=== PATIENT | female | born 1975 | race Caucasian/White ===

== ENCOUNTER → 2022-10-17 | Outpatient (CLI) | payer SELFPAY, OTHER ==
--- NOTE | 2022-10-17 12:44 | US_ITS ---
EXAM: US PELVIS TRANSABDOMINAL AND TRANSVAGINAL, COMPLETE CLINICAL INDICATION: pelvic pain TECHNIQUE: Transabdominal and transvaginal pelvic ultrasound was performed with grayscale and color Doppler imaging. Transvaginal imaging was used for better evaluation of the endometrium and adnexa. This report was created using [email or web address] report [employer] technology. COMPARISON: None. FINDINGS: UTERUS/CERVIX: Uterus is normal in size and echogenicity measuring 10.5 x 6.6 x 6.9 cm. Endometrial thickness is normal measuring 8 mm. Mild fluid in the endometrial canal. 4.9 x 5.4 cm hypoechoic exophytic lesion arising from the uterus on the right consistent with fibroid. 6 x 6 x 5 mm hyperechoic lesion arising from the endometrium. RIGHT OVARY: Right ovary is normal in size and echogenicity measuring 2.8 x 2 x 2.2 cm. No dominant mass or cyst. Blood flow is present in the right ovary. LEFT OVARY: Left ovary is normal in size and echogenicity measuring 2.3 x 1.3 x 1.4 cm. No dominant mass or cyst. Blood flow is present in the left ovary. FREE FLUID: None. BLADDER: Bladder is well-distended and unremarkable. US/Pelvic w/ Transvaginal IMPRESSION: 1. Hyperechoic lesion in the endometrium, possible polyp. MEDICAL EQUIPMENT REPAIR TECHNICIAN evaluation is recommended. 2. Subserosal uterine fibroid. Electronically Signed: Kathy Plascencia MD at 17:36 EDT Reading Location ID and State: [id number] / Tel , Service support ,
== END | disposition home or self-care (01) ==
LOC: US 12:42
PROVIDERS: PCP Nurse Practitioner Family; Referring Provider Obstetrics & Gynecology; Visit Provider Obstetrics & Gynecology
DX: N94.89 Other specified conditions associated with female genital organs and menstrual cycle (principal); D25.2 Subserosal leiomyoma of uterus
CPT/HCPCS: 76830; 76856

== ENCOUNTER → 2022-12-26 | Outpatient (CLI) | payer OTHER, SELFPAY ==
--- NOTE | 2022-12-26 | EMB_PTH ---
PATIENT: [facility]MIHT [facility][id number] AGE/SX: 47/F ROOM: RE12/26/[address]: Dr. Tiny Tse MD : 1975 BED: DIS: 12/26/2022 SPEC #: [id number] RECD: 12/26/22 16:38 STATUS: NAHUM CECILIA #: [id number] MARYCARMEN: 12/26/22 00:[address]: Tiny Tse DEPT: SURGICAL PATHOLOGY RECD BY: Mallory Gandara ENTERED: 12/29/22 08:45 SP TYPE: ENDOM BX/C FINA DR: Catherine Gallo, SPEECH THERAPIST-C Tissues: Endometrium, NOS Procedures: Surgery Specimen Level IV HEADER OPERATION: Endometrial biopsy PRE-OP DIAGNOSIS: Abnormal uterine bleeding TISSUE SUBMITTED: Endometrial lining MICROSCOPIC DIAGNOSIS Endometrium, biopsy: Secretory endometrium. AM:amberly 12/30/2022 MICROSCOPIC DESCRIPTION Slides are reviewed. GROSS DESCRIPTION Received is one container labeled with the patient's name and not further designated. The specimen consists of multiple irregular fragments of pink soft tissue that in aggregate measure 2.5 x 1.5 x 0.2 cm. The specimen is totally submitted in one cassette. / SJ:amberly 12/29/2022 TC:5 CPT: 52851
== END | disposition home or self-care (01) ==
LOC: LABSPEC 16:48
PROVIDERS: PCP Nurse Practitioner Family; Referring Provider Obstetrics & Gynecology; Visit Provider Obstetrics & Gynecology
DX: N93.9 Abnormal uterine and vaginal bleeding, unspecified (principal)
CPT/HCPCS: 88305

== ENCOUNTER 2023-01-13 14:11 | Inpatient (IN) | payer SELFPAY, OTHER ==
--- NOTE | 2023-01-06 08:40 | EKG12_ITS ---
Test Reason : PREOP Blood Pressure : / mmHG Vent. Rate : 053 BPM Atrial Rate : 053 BPM P-R Int : 130 ms QRS Dur : 084 ms QT Int : 426 ms P-R-T Axes : 071 073 046 degrees QTc Int : 399 ms Sinus bradycardia Low voltage QRS Borderline ECG Confirmed by GABRIELLA HEATON, ROGERIO ([id number]), acquisitions editor RIHCA BEAULIEU ([id number]) on 01/07/2023 11:16:41 AM Referred By: Tiny Tse Confirmed By:ROGERIO QUIROZ MD
[2023-01-06 09:19] LABS: Absolute Lymphocyte Count 1.67 X10^3/uL (0.83-4.51); Absolute Neutrophil Count 2.3 X10^3/uL (2.0-7.7); Basophil# 0.03 X10^3/uL; Basophil% 0.7 % (0-1); Eosinophil# 0.09 X10^3/uL; Hemoglobin 11.2 g/dL (12.0-15.0); Lymphocyte # 1.67 X10^3/ul (0.83-4.51); Lymphocyte % 36.9 % (19-41); Mean Corp Hgb Conc 31.1 g/dL (32-36); Mean Corpuscular Hgb 26.7 pg (27.0-32.0); Mean Corpuscular Volume 85.7 fL (81-99); Mean Platelet Vol. 8.9 fl (6.2-12.0); Monocyte# 0.41 X10^3/uL; Monocyte% 9.1 % (0-10); NRBC Flagged by Analyzer 0 % (0-5); Neutrophil # 2.31 X10^3/uL (2.7-7.7); Neutrophil % 51.1 % (47-70); Platelet Count 231 K/mm3 (150-450); RBC Distribution Width CV 13.7 % (11.6-14.6); RBC Distribution Width SD 43.2 fl (35.1-43.9); White Blood Count 4.5 K/mm3 (4.4-11.0)
[2023-01-06 09:48] LABS: ALB/GLOB Ratio 1.2 RATIO (0.9-2.4); AST(SGOT) 13 U/L (15-37); Alanine Aminotransfer ALT/SGPT 15 U/L (13-56); Albumin, Serum 3.9 g/dL (3.2-5.0); Alkaline Phosphatase 58 U/L (45-117); Anion Gap 3 (5-15); BUN 14 mg/dL (7-18); BUN/Creat Ratio 22.8 RATIO (10-20); Calcium,Total 9.2 mg/dL (8.5-10.1); Chloride 109 mmol/L (98-107); Creatinine, Serum 0.62 mg/dL (0.55-1.02); EST Glomerular Filtration Rate 110 mL/min (>60); Est Glom Filt Rate - Afr Amer 133 mL/min (>60); Globulin 3.3 g/dL (2.2-4.2); Glucose 84 mg/dL (74-106); Potassium 4.2 mmol/L (3.5-5.1); Protein, Total 7.2 g/dL (6.4-8.2); Sodium Level 141 mmol/L (136-145)
[2023-01-06 09:55] LABS: Magnesium 2.1 mg/dL (1.6-2.6)
--- NOTE | 2023-01-12 17:30 | HP.PCM_ITS ---
History and Physical MR#: [id number] Acct: [id number] Name:? OFE SMITH Rep #: [id number] : 1975 ? ? Provider: Dr. Tiny Tse MD Age/Sex:? 47/F ? ? [place] [facility] [place]: Signed Intake Vital Signs ? 12/27/2307:13 12/27/2307:19 Height 5 ft 3 in 5 ft 3 in Weight: ? 142 lb 8 oz BMI ? 25.2 BP ? 100/61 Position ? Sitting Intake Visit Reasons:?EMB/preop Director New Product Required: No Accompanied by: Significant Other Allergies No Known Allergies Allergy (Unverified 12/26/22 08:20) Is last menstrual period known: Yes Post menopausal: No Patient : No : No Current gender identity: female PFSH PFSH Medical History? Hypotension Uterine fibroid Surgical History? delivery delivered Hiatal hernia History of oral surgery Family History? Father?? ,? 79 Cancer of kidney Bladder cancer Social History? Smoking Status:? Never smoker alcohol intake:? never substance use type:? does not use what type of physical activity do you participate in:? none seatbelt use:? always do you feel safe at home:? Yes additional [facility] history:[facility] A[facility] Carlos/Svetlana History ? ? ? 7 ? Elective abortions ? Hx Para ? Spontaneous abortions ? ? ? 1 Hx # Term Pregnancies ? Ectopic pregnancies ? Hx # Pregnancies ? Multiple births ? # of living children ? ? ? 6 Past Pregnancies Del. Date Name GA/Weeks Outcome Route Bth Weight Infant Gen Labor Lgth Anesthesia Del Locatn Provider FOB Unknown 1993 Li ? live - full term ? Unknown 1995 Ana ? live - full term C-s ection ? Unknown 1998 Claudette ? live - full term C-s ection ? Unknown 2000 Nel ? live - full term C-se ction ? Unknown 2002 Shadia ? live - full term C-s ection ? Unknown 2006 Maryanne ? live - full term C-s ection ? HPI EMB/preop Details: OFE SMITH is a 47 year old who presents for surgical preop she has persistent pelvic pain and pressure, history of pelvic congestion suspected on ultrasound and a 5 cm fibroid.? 5 previous cesareans.? she is orthodox and self pay.? she denies any heavy menses but has cramping. ROS Const Constitutional: Denies fatigue, fever(s), headache(s), increased appetite, poor appetite, weight gain or weight loss ENT ENT: Reports system reviewed and no additional complaints, except as documented Cardio Card: Denies chest pain Resp Resp: Denies cough or dyspnea GI GI: Reports as per HPI; Denies constipation, nausea or vomiting : Reports as per HPI; Denies difficulty voiding, dysuria, nipple discharge, urinary frequency, urinary incontinence, urinary hesitancy, urinary urgency, vaginal discharge, vaginal dryness, vaginal odor or vaginal pruritus Musc Musc: Denies arthralgias, back pain or muscle weakness Skin Skin/Breast: Denies alopecia, change in hair, dry skin, breast mass, breast pain, breast skin changes or nipple discharge Neuro Neuro: Reports system reviewed and no additional complaints, except as documented Psych Psych: Reports system reviewed and no additional complaints, except as documented Endo Endo: Denies cold intolerance, excessive sweating, heat intolerance or polydipsia Jaren/Lymph Hematologic/Lymphatic: Denies easy bleeding, Denies easy bruising and Denies lymphadenopathy Exam Const General: cooperative, healthy appearing, comfortable, no acute distress and well developed Nutritional Appearance: average body habitus Orientation: alert [facility] Head: normal to inspection and normocephalic Ears: hearing grossly normal bilaterally and external ears normal Nose: external nose normal and nares normal Face and sinus: normal facial exam Neck Neck: normal visual inspection and no lymphadenopathy Thyroid: thyroid normal Chest Chest palpation & inspection: normal inspection of the chest Resp Effort & Inspection: normal respiratory effort Auscultation: clear to auscultation bilaterally Cardio Rate: regular rate Rhythm: regular rhythm Heart Sounds: S1 normal and S2 normal GI Inspection: normal to inspection and non-distended Palpation: soft and no hepatosplenomegaly General: bladder normal to palpation External Female Exam: normal external appearance and normal appearance of the urethra Urethra: normal appearance of the urethra and normal palpation Speculum Exam - Vagina: normal appearance of the vagina and vaginal bleeding Speculum Exam - Cervix: normal appearance of the cervix and nontender Bimanual Exam- Vagina & Uterus: normal bimanual exam, uterine size normal, bladder normal to palpation, uterine shape abnormal, No tender, uterine mobility normal, consistency normal, normal palpation, non-tender, enlarged (10 week) and nodular (posterior fibroid retroverted uterus) Bimanual Exam- Adnexa, other: normal adnexae, adnexae mobile, no masses and normal Pelvic Support: normal OB/External & Speculum: vaginal bleeding Speculum Exam: vaginal bleeding Musc Other: gross motor intact no deficits, full bilateral strength Skin General: no rashes or lesions noted Neuro General: patient alert, patient awake, moves all extremities and no focal motor deficits Motor: muscle tone normal throughout Extrem General: normal to inspection and no pedal edema Psych Appearance: grossly normal Mental Status: mental status grossly normal Affect: normal affect Speech and Movement: speech and movement normal Office Procedures Endometrial Biopsy Endometrial Biopsy Test: Yes Negative Consent Signed: Yes Time out checklist: patient, procedure, site marked/identified, positioning of patient, supplies available, allergies confirmed and team agrees on procedure Time out time: 09:30 tenaculum used: Yes dilator used: Yes Details: Cervix prepped with betadine and pipelle inserted into uterus without complication. Specimen obtained and sent to lab for analysis. All instruments removed from vagina without complications. Excellent hemostasis noted. Coding Level of Care Code No Charge Diagnoses Pelvic congestion syndrome? N94.89 Uterine fibroid? D25.9 CPT Codes Endometrial Biopsy (67546) Assessment and Plan Assessment and Plan (1) Pelvic congestion syndrome: ?Status:?Acute ?Comment: discussed OCP, ellagolix, or hysterectomy, proceed with LAVHBS (2) Uterine fibroid: ?Status:?Acute ?Comment: 5cm.? 5 previous cesareans. see other A/P info. ? ? ? Orders: Orders Endometrial Biopsy Today ? ? Comprehensive Metabolic Profil Today D25.9 - Leiomyoma of uterus, unspecified, N94.89 - Other specified conditions associated with female genital organs and menstrual cycle ? 12 Lead EKG Today D25.9 - Leiomyoma of u terus, unspecified, N94.89 - Other specified conditions associated with female genital organs and menstrual cycle ? CBC W/Diff, Automated Today D25.9 - Leiomyoma of uterus, unspecified, N94.89 - Other specified conditions associated with female genital organs and menstrual cycle ? Type & Screen - PAT ONLY Today D25.9 - Leiomyoma of uterus, unspecified, N94.89 - Other specified conditions associated with female genital organs and menstrual cycle ? Plan After discussing the patient's diagnosis and treatment plan options, patient wishes to proceed with surgical management.? I have discussed with the patient the risks, benefits, and alternatives of the procedure which include but are not limited to risks of anesthesia, bleeding, infection, possible damage to bowel, bladder, or surrounding vasculature which could lead to additional surgery to evaluate any complications.? Patient agrees to procedure and wishes to proceed.? ACOG/uptodate references given for additional information regarding procedure.?
[2023-01-13] VITALS (16 sets, daily range): BP systolic 96–112; BP diastolic 52–67; PULSE 59–79; RESP 14–36; TEMP 36.4–37.1; O2SAT 14–100; BMI 25.2
--- NOTE | 2023-01-13 | HYST_PTH ---
PATIENT: OFE SMITH LOC: [facility] U#:[id number] AGE/SX: 47/F [place]OM: [facility] [place] RE01/13/[address]: Dr. Tiny Tse MD : 1975 BED: 1 DIS: 01/14/2023 SPEC #: [id number] RECD: 01/13/23 13:21 STATUS: NAHUM BROOKS #: [id number] MARYCARMEN: 01/13/23 00:[address]: Tiny Tse DEPT: SURGICAL PATHOLOGY RECD BY: Gino Nayak ENTERED: 01/13/23 13:21 SP TYPE: HYSTERECT OTHR DR: Catherine Gallo, SENIOR DESIGNER/ART DIRECTOR-C Tissues: Uterus, NOS Procedures: Surgery Specimen Level V HEADER OPERATION: LAVH converted to total abdominal hysterectomy, bilateral salpingectomy PRE-OP DIAGNOSIS: Pelvic congestion syndrome, uterine fibroid TISSUE SUBMITTED: Cervix, uterus, bilateral fallopian tubes MICROSCOPIC DIAGNOSIS Uterus, hysterectomy: Cervix ? nabothian cysts and mild chronic inflammation. Endometrium ? proliferative endometrium. Myometrium ? leiomyoma and focal adenomyosis. Right fallopian tube - no pathologic change. Left fallopian tube ? benign paratubal cyst. AM:amberly 01/14/2023 MICROSCOPIC DESCRIPTION Slides are reviewed. GROSS DESCRIPTION Received in fixative is one container labeled with the patient's name and designated uterus. The specimen consists of a uterus with attached cervix and attached right and left fallopian tubes. The uterus with cervix measures 12.0 x 11.0 x 5.0 cm and weighs 303 gm. The ectocervix is grossly unremarkable. The endocervical canal measures 4.2 cm in length and is grossly unremarkable. The triangular endometrial cavity measures 5.2 x 5.0 cm. The velvety, reddish-fitch endometrium measures up to 0.2 cm in thickness. The myometrium measures 2.8 cm in average thickness and contains a firm, rubbery pink-fitch nodule measuring 6.0 cm in diameter. The cut surface of the nodule displays a whorled appearance without areas of cyst formation, necrosis or hemorrhage. The right and left fallopian tubes are similar in appearance with average lengths of 4.5 cm and average diameters of 0.8 cm. Smutter sections are submitted in ten cassettes as follows: 1 - anterior cervix, 2 - posterior cervix, 3 & 4 - anterior uterine wall, 5 & 6 - posterior uterine wall, 7 & 8 - myometrial mass, 9 - right fallopian tube, 10 - left fallopian tube. / STEVE:amberly 01/13/2023 TC:1 CPT: 02781
[2023-01-13] MEDS: Lactated Ringers 1,000 ML 40 ML IV ×3 (09:05→12:35)
[2023-01-13] MEDS: Magnesium 1 GM over 15 mins IV (09:08)
[2023-01-13] MEDS: Scopolamine 1mg/72hr Patch 1 PATCH TD (09:10)
[2023-01-13] MEDS: Celecoxib 200 MG Capsule 400 MG PO (09:11)
[2023-01-13] MEDS: Phenazopyridine 95 MG Tablet 190 MG PO (09:11)
[2023-01-13] MEDS: Gabapentin 600 MG Tablet PO (09:12)
[2023-01-13] MEDS: Acetaminophen 500 MG Tablet 1000 MG PO ×3 (09:12→23:37)
[2023-01-13] MEDS: Enoxaparin 40 MG/0.4 ML Syringe SC (09:12)
[2023-01-13 09:13] LABS: Internal QC Validated? YES +Cl - CLEAR BKGD; Pregnancy, Urine Negative Negative
[2023-01-13] MEDS: dexAMETHasone 4 MG/ML Vial 8 MG IV (09:15)
[2023-01-13 09:36] LABS: Bedside Glucose 135 mg/dL (74-106)
--- NOTE | 2023-01-13 09:45 | OP.PCM_ITS ---
Problems Associated Problem List Diagnoses (1) Pelvic congestion syndrome: (2) Uterine fibroid: Report of Operation Date of Procedure: 01/13/23 Pre-Operative Diagnosis: AUB Post-Operative Diagnosis: same Surgery/Procedure Performed:: LAVHBS converted to NORA due to cystotomy Description of Surgical Findings:: 5 previous sections and enlarged fibroid uterus right 5.5 cm anterior w ith 315g uterus, extensive anterior scarring of vesicouterine space Surgeon: Tiny Tse casino cage manager: Coretta Hyman Type of Anesthesia: General Specimen's removed: uterus, tubes Drains: clarke Fluids Replaced: crystalloid Description of Procedure: Patient received preoperative antibiotics and SCDs were on preoperatively. Patient was taken back to the operating room and placed in the dorsal lithotomy position. General anesthesia was induced and patient was prepped and draped in normal sterile fashion. Uterine manipulator was placed inside the uterus and Clarke catheter placed in the bladder. The umbilicus was grasped with towel clamps and an intraumbilical incision was made after injecting with quarter percent Marcaine and a Veress needle entered into the abdomen confirmed to be intra-abdominal with a low opening pressure. Abdomen was insufflated with CO2 gas and the Veress needle removed and the 5 mm trocar was placed under direct visualization without complication. Right and left lower quadrants were transilluminated and injected with quarter percent Marcaine and 5 mm ports placed under direct visualization. Pelvis was well visualized see operative findings for additional information. Bilateral fallopian tubes were identified and transected with the LigaSure device across the mesosalpinx to the level of the utero-ovarian ligament which was also transected with the LigaSure device. The broad ligament was opened up by transecting the round ligament bilaterally and skeletonizing the uterine vessels bilaterally and creating a bladder flap using the LigaSure device. this required extensive careful dissection both with blunt, sharp, and hydrodissection. The tissue planes were very dense and difficult to fully ascertain but after the full dissection was complete and the bladder inspected there was a 1 cm incidental cystotomy noted and therefore urology called for repair. Urology requested an open incision and therefore laparotomy was performed with pfannensteil skin incision to the layer of the fascia which was nicked in the midline and the incision extended laterally. Very poor tissue quality was encountered likely due to malnutrition and multiple previous pregnancies. Abdominal wall and rectus muscles were extremely thin. Abdominal retractor was placed after the abdominal cavity was entered and bowel packed away. Please see Dr. Francisco's note for repair. The uterus and fibroid were then grasped and with the dissection of the fibroid was performed around the right pelvic sidewall. Additional scar tissue was taken down along the lower part of the cervix and uterus. Bilateral uterosacral ligaments were clamped cut and suture-ligated with 0 Monocryl. Then the vaginal cuff was clamped cut and the uterus was amputated off of the vaginal stump and sent to pathology for analysis. Vaginal cuff was sutured with [id number] 0 Vicryl pop-off's. An additional stitch obtain hemostasis in the left angle of the vaginal cuff. A raw appearance over the vesicouterine scar tissue dissection area was noted and therefore Lola was placed over this area and then excellent hemostasis was noted. This was after copious irrigation was performed. All sponges and laps were removed from the abdomen and peritoneum closed with 3-0 Monocryl fascia closed with 1 strata fix PDS with an additional peritoneal suture along the right side due to part of the stitch being cut during fascial closure. Subcutaneous tissue was copiously irrigated and the skin was closed with 4-0 Monocryl. Port sites on the abdomen were closed with 4-0 Monocryl interrupted sutures and dermabond was applied. She was awoken and taken recovery in stable condition. Grafts/Implants Used: none Complications none Admit VTE Documentation VTE Present on Admission: No VTE Mechan Device Prophylaxis: SCD's VTE Pharm Prophylaxis ordered?: Yes Procedures Urinary/Genital 52xxx-59xxx: 79720 LAVH+BS/O <250gr Uterus
--- NOTE | 2023-01-13 09:46 | DCINST_ITS ---
Discharge Instructions Diet Discharge Diet: No restrictions Activity May resume sexual activity in: 6 weeks Weight Bearing Status: Full weight bearing Dressing / Incision Call your doctor if your incision/area has: Continuous Slow Oozing, Sudden Increased Bleeding, Increased Pain/ Swelling, Increased Redness and Foul Smelling Discharge Call your doctor if you observe: Fever of 101 or Higher, Using more than 1 pad per hour, Shortness of breath, Chest pain and Uncontrolled pain Suture Line Care: Avoid Pulling/Pushing and Avoid Pinching/Bending Remove Dressing in: 1 week (if present) Cleanse incision/area with: Soap & Water and Keep Dressing Clean & Dry Follow Up Care Please Follow Up With: Tiny Tse MD When: Call to make an appointment with your doctor for a postop visit in 2 and 6 weeks. Test Results: Test results from this visit will be discussed in further detail at your follow- up appointment, if applicable. Discharge Plan Admission Attending Provider: Tiny Tse Primary Care Provider: Catherine Gallo Discharge Orders/Prescriptions Prescriptions: New oxycodone-acetaminophen [Percocet] 5-325 mg tablet 1 tab PO Q6H PRN (Reason: pain) 7 Days Qty: 20 0RF naproxen [naproxen] 500 mg tablet 500 mg PO BID PRN PRN (Reason: Pain) Qty: 30 1RF Referrals / Follow Up: Catherine Gallo, THERESA-C [Primary Care Provider] - Disposition Disposition (needs filled in before D/C Order can be placed): Home, Self Care
[2023-01-13] MEDS: Cefazolin 2 GM in 0.9% Normal Saline 100 ML IV (09:53)
[2023-01-13] MEDS: Bupivacaine 0.25% 30 ML Vial (10:30)
--- NOTE | 2023-01-13 11:55 | OP.PCM_ITS ---
Report of Operation Date of Procedure: 01/13/23 Pre-Operative Diagnosis: Uterine fibroid, pelvic congestion syndrome Post-Operative Diagnosis: Same, and cystotomy Surgery/Procedure Performed:: Closure cystotomy, cystoscopy with right ureteral catheterization Description of Surgical Findings:: 1 cm cystotomy at the dome not involving either ureter. Surgeon: Marilee Francisco Type of Anesthesia: General Description of Procedure: The patient is a 47-year-old female undergoing a laparoscopic assisted hysterectomy with a history of 5 previous section deliveries. An inadvertent cystotomy at the dome of the bladder was encountered approximately 1 cm in size and I was called in for evaluation and management. At the time I arrived, Dr. Tse had opened the abdomen and had the injury dissected nicely. The entire length of the cystotomy was easily visualized and isolated. It was closed in 3 layers, first with 3-0 chromic in the bladder mucosa, followed by 3-0 Vicryl in the detrusor layer, and then 2-0 Vicryl for an imbrication layer. At completion of the closure, the Hong catheter was removed and a cystoscope was inserted into the bladder confirming no further evidence of injury to the remainder of the bladder. The closure was watertight. The left ureteral orifice ureteral jet was clearly seen with Pyridium. On the right side, the ureteral orifice was intubated with a 5 Micronesian whistle-tip catheter which easily advanced to 20 cm and was left in place for completion of the hysterectomy. At this time the cystoscope was removed and the Hong catheter was reinserted. 10 cc of sterile water was placed into the Hong balloon. The case was then turned back over to Dr. Tse. There were no complications during this portion of the procedure. Grafts/Implants Used: None Complications None Admit VTE Documentation VTE Present on Admission: Yes VTE Mechan Device Prophylaxis: SCD's
[2023-01-13] MEDS: Ondansetron 4 MG/2 ML Vial IV (12:38)
[2023-01-13] MEDS: Ketorolac 30 MG/ML Syringe IV ×2 (17:12→23:37)
[2023-01-13] MEDS: Lactated Ringers 1,000 ML 999 ML IV (18:29)
[2023-01-13] MEDS: oxyCODONE 5 MG Tablet PO (20:06)
[2023-01-13] MEDS: Docusate Sodium 100 MG Capsule PO (22:24)
[2023-01-14 04:01] VITALS: BP 96/58; PULSE 61; RESP 16; TEMP 36.8; O2SAT 98
--- NOTE | 2023-01-14 05:56 | PCM.PN.OB ---
Subjective Subjective Patient doing well without complaints. Tolerating PO. Ambulating without difficulty. Denies chest pain, shortness of breath, calf pain/swelling, fevers, chills, lightheadedness. Objective Data Objective Data Vital Signs: Vital Signs Temp Pulse Resp BP Pulse Ox O2 Del Method O2 Flow Rate 98.2 F 61 16 96/58 L 98 Room Air 2 01/14/23 04:01 01/14/23 04:01 01/14/23 04:01 01/14/23 04:01 01/14/23 04:01 01/14/23 04:01 01/13/23 15:52 Oxygen Flow Rate (L/min) 2 Oxygen Delivery Method Room Air Weight: 142 lb 6.4 oz Body Mass Index (BMI) 25.2 Intake & Output: Intake and Output for Last 24 Hours 01/12/23 01/13/23 01/14/23 23:59 23:59 23:59 Intake Total 4050.67 / 4050.67 Output Total 2725 / 2725 Balance 1325.67 / 1325.67 Lab / Micro Data Result Diagrams: 01/06/23 08:59 01/06/23 08:59 Labs: Laboratory Results - last 24 hr 01/13/23 08:55: Urine Test Negative 01/13/23 09:03: POC Glucose 135 H ROS Constitutional Constitutional: Reports systems reviewed and no addt'l complaints, except as documented Cardiovascular Cardiovascular: Reports systems reviewed and no addt'l complaints, except as documented Respiratory/Chest Respiratory/Chest: Reports systems reviewed and no addt'l complaints, except as documented Gastrointestinal Gastrointestinal: Reports systems reviewed and no addt'l complaints, except as documented Physical Exam Const alert, oriented x3 and no apparent distress HEENT Head and Scalp: atraumatic Resp normal respiratory effort GI soft to palpation and non-tender Assessment & Plan (1) Pelvic congestion syndrome: COMMENT: s/p LAVHBS converted to NORA due to cystotomy. repaired by Maryam. (2) Uterine fibroid: COMMENT: 5cm. 5 previous cesareans. PLAN: Plan patient is s/p NORA POD 1 1. routine ERAS protocol postop care- increase ambulation, encourage oral intake and oral control of pain. lovenox and scds for dvt prophylaxis, patient stable for discharge to home.
[2023-01-14] MEDS: Acetaminophen 500 MG Tablet 1000 MG PO (06:16)
[2023-01-14] MEDS: Ketorolac 30 MG/ML Syringe IV (06:17)
[2023-01-14 06:42] LABS: Hematocrit 31.3 % (37-47); Mean Corp Hgb Conc 31.9 g/dL (32-36); Mean Corpuscular Hgb 26.6 pg (27.0-32.0); Mean Corpuscular Volume 83.2 fL (81-99); Mean Platelet Vol. 8.7 fl (6.2-12.0); Platelet Count 180 K/mm3 (150-450); RBC Distribution Width CV 13.8 % (11.6-14.6); RBC Distribution Width SD 41.5 fl (35.1-43.9); Red Blood Count 3.76 M/mm3 (4.2-5.4)
[2023-01-14] MEDS: Bisacodyl 5 MG Tablet 10 MG PO (06:46)
[2023-01-14 08:00] VITALS: BP 107/60; PULSE 61; RESP 16; TEMP 37; O2SAT 99
[2023-01-14] MEDS: Docusate Sodium 100 MG Capsule PO (08:12)
[2023-01-14] MEDS: Ensure Plus High Protein 120 ML LIQUID PO (08:12)
[2023-01-14] MEDS: Enoxaparin 40 MG/0.4 ML Syringe SC (08:12)
--- NOTE | 2023-01-14 09:12 | NURSING ---
pt not yet passing gas, this RN walked pt in hallway
--- NOTE | 2023-01-14 09:20 | CASEMGMT ---
FERNANDO HORVATH Assessment: Face to Face with pt for initial transition planning/care coordination assessment. RN ALEXANDRU introduced self and role at [facility], pt voices understanding and consents to assessment. Pt is A/O x4 and answers all questions appropriately at this time. Pt lying in bed with at bedside. Pt agreeable to assessment with present. Care providers, pharmacy, and demographics verified/updated. Admitting Dx: GABRIELLE, BS converted to [facility] PCP:Sabino Specialists:Carmencita FAMILY LAW ATTORNEY Preferred Pharmacy: [facility] Retail Insurance: [facility] Package Plan, [employer] Prescription Benefit: no LNOK: Remi Velez, Living Arrangements: Pt lives with and two children in a two story home with 3-4 steps to enter without a rail. Pt reports she is I in ADL's and denies concerns at home. Transportation: Pt hires drivers for transportation and has a local truck driver to take her home from the hospital. DME/HHC/SNF: Pt denies having any DME in the home, previous HHC or SNF stays. Pt states no concerns with going home at time of dc. Pt states no further concerns/needs. CM to follow. Advised pt to ask CM if any further question/concerns/needs arise, voices understanding. Pt Goal: Home Plan: Home
--- NOTE | 2023-01-14 10:37 | PHA.DC.MC ---
Pharmacy Service has performed discharge medication reconciliation and counseling for this patient. 1. OXYCODONE/ACETAMINOPHEN 5/325 1T PO Q6H PRN PAIN 2. NAPROXEN 500MG PO BID PRN PAIN The patient's discharge medication list was reviewed for discrepancies and discrepancies were resolved. Home Medications naproxen 500 mg tablet 500 mg PO BID PRN PRN Pain #30 tabs 01/13/23 oxycodone-acetaminophen 5 mg-325 mg tablet (Percocet) 1 tab PO Q6H PRN pain 7 days #20 tabs 01/13/23 The patient was counseled on the following discharge medications and changes in medications for homegoing were reviewed. The Reason for Use, instructions for use, and potential side effects were reviewed for all new medications. The patient's questions regarding all of their medications were answered. The patient was able to verbally demonstrate an understanding of their discharge medications. Patient was counseled by registered pharmacy technicianChandan.
== END 2023-01-14 10:37 | disposition home or self-care (01) | DRG 742 ==
LOC: SDC 14:24 → MS3 14:24
PROVIDERS: Anesthesiology; Admitting Provider Obstetrics & Gynecology; PCP Nurse Practitioner Family; Referring Provider Obstetrics & Gynecology; Visit Provider Obstetrics & Gynecology
PROC: 0UT9FZZ Resection of Uterus, Via Natural or Artificial Opening With Percutaneous Endoscopic Assistance (ICD-10-PCS; principal; 2023-01-13 11:15)
DX: N94.89 Other specified conditions associated with female genital organs and menstrual cycle (principal); N99.71 Accidental puncture and laceration of a genitourinary system organ or structure during a genitourinary system procedure; E44.0 Moderate protein-calorie malnutrition; N80.03 Adenomyosis of the uterus; N88.8 Other specified noninflammatory disorders of cervix uteri; N83.8 Other noninflammatory disorders of ovary, fallopian tube and broad ligament; N93.9 Abnormal uterine and vaginal bleeding, unspecified; D25.9 Leiomyoma of uterus, unspecified; Z68.25 Body mass index [BMI] 25.0-25.9, adult; Z53.31 Laparoscopic surgical procedure converted to open procedure
CPT/HCPCS: 36415; 80053; 81025; 82962; 83735; 85025; 85027; 86850; 86900; 86901; 88307; 93005; J7120; C1758; J2405; J3475

== ENCOUNTER → 2023-01-20 | Outpatient (CLI) | payer OTHER, SELFPAY ==
--- NOTE | 2023-01-20 10:24 | RAD_ITS ---
CLINICAL HISTORY: Female, 47 years old. Assessment of the urinary bladder following bladder injury. PROCEDURE: Cystogram. FLUOROSCOPY TIME (if supplied): (30 seconds) minutes/seconds. 4 images. 9.2 mGy 2050 mL of contrast installed into the bladder in a retrograde fashion through an indwelling Hong catheter. The radiologist installed the contrast into the bladder. Findings: The bladder was opacified. No evidence of bladder leak. RAD/Cystography min 3 Views IMPRESSION: No evidence of bladder leak. Electronically Signed: Trent Duvall MD at 12:11 EDT ,
== END | disposition home or self-care (01) ==
LOC: RAD 10:16
PROVIDERS: PCP Nurse Practitioner Family; Referring Provider Urology; Visit Provider Urology
DX: D25.9 Leiomyoma of uterus, unspecified (principal); N94.89 Other specified conditions associated with female genital organs and menstrual cycle
CPT/HCPCS: 51600; 74430; Q9965